=== PATIENT | male | born 1965 | race Caucasian/White ===

== ENCOUNTER → 2017-11-01 | Outpatient (CLI) | payer OTHER ==
[~2017-11-01] MED LIST: ALLEGRA ALLERG180 MG PO; ANTIVERT25 MG PO; ASPIR 8181 MG PO; CARAFATE 1 GM TA1 G1 PO; CLARITIN10 MG PO; FLONASE 0.05%50 MCG NASAL; GLUCOTEN CAPLE1 EACH PO; HYDROCODONE-AP1 EAC6 PO; LIPITOR 20 MG T20 M1 PO; LISINOPRIL-HCT1 EAC2 PO; LISINOPRIL10 MG PO; NORCO 7.5-3251 EACH PO; PRINIVIL; UNICOMPLEX M TA1 TA1 PO; VALIUM5 MG PO; ZYRTEC10 MG PO
--- NOTE | ~2017-11-01 | 2DMMODE ---
[facility] [employer] [place] [address] 2 D/M-MODE ECHOCARDIOGRAM Name: AKBAR DOW Room #: REG [facility]#: [id number] Admission: 11/01/17 Attend Phys: Gerardo Castaneda Discharge: Date of : 63 Date of Service: 11/01/17 [facility] Report #: [id number] THIS REPORT FOR: //name// APPROVED REPORT Study performed: 11/01/2017 09:14:55 EXAM: Comprehensive 2D, Doppler, and color-flow Echocardiogram Patient Location: Out-Patient Status: routine BSA: 2.26 HR: 74 bpm BP: 145/94 mmHg Rhythm: NSR Other Information Study Quality: Good Indications SOB 2D Dimensions RVDd: 32.32 mm IVSd: 11.92 (7-11mm) LVOT Diam: 22.24 (18-24mm) LVDd: 48.16 mm PWd: 10.70 (7-11mm) Ascending Ao: 34.52 (22-36mm) LVDs: 28.65 (25-40mm) Aortic Root: 37.53 mm Volumes Left Atrial Volume (Systole) Single Plane 4CH: 54.94 mL Single Plane 2CH: 44.08 mL LA ESV Index: 24.00 mL/m2 Aortic Valve AoV Peak Jaron.: 1.55 m/s AO Peak Gr.: 9.59 mmHg LVOT Max P.27 mmHg LVOT Max V: 1.03 m/s PEPPER Vmax: 2.59 cm2 Mitral Valve E/A Ratio: 0.9 MV Decel. Time: 213.35 ms MV E Max Jaron.: 0.79 m/s [facility] [address] [place] [address] 2 D/M-MODE ECHOCARDIOGRAM Name: AKBAR DOW Room #: REG [facility]#: [id number] Admission: 11/01/17 Attend Phys: Gerardo Castaneda Discharge: Date of : 63 Date of Service: 11/01/17 1024 Report #: [id number] MV A Jaron.: 0.91 m/s MV PHT: 61.87 ms IVRT: 101.50 ms Pulmonary Valve PV Peak Jaron.: 1.04 m/s PV Peak Gr.: 4.35 mmHg Pulmonary Vein P Vein S: 0.51 m/s P Vein A: 0.35 m/s P Vein D: 0.45 m/s P Vein A Dur.: 129.2 msec P Vein S/D Ratio: 1.13 Tricuspid Valve TR Peak Jaron.: 2.07 m/s RAP Estimate: 5.00 mmHg TR Peak Gr.: 17.12 mmHg PA Pressure: 22.00 mmHg Left Ventricle The left ventricle is normal size. There is normal LV segmental wall motion. Mild concentric left ventricular hypertrophy. The left ventricular systolic function is normal. LVEF is 60-65%. Mild diastolic dysfunction is present (impaired relaxation pattern). Right Ventricle The right ventricle is normal size. The right ventricular systolic function is normal. Atria The left atrium size is normal. The right atrium size is normal. Aortic Valve Aortic valve is mildy calcified. Mild aortic regurgitation. There is no aortic valvular stenosis. Mitral Valve The mitral valve is normal in structure. Trace mitral regurgitation. No evidence of mitral valve stenosis. Tricuspid Valve The tricuspid valve is normal in structure. Trace tricuspid regurgitation. Estimated PAP is 22mmHg. Pulmonic Valve The pulmonary valve is normal in structure. There is no pulmonic [facility] [address] [place] [address] 2 D/M-MODE ECHOCARDIOGRAM Name: AKBAR DOW Room #: REG [facility]#: [id number] Admission: 11/01/17 Attend Phys: Gerardo Castaneda Discharge: Date of : 63 Date of Service: 11/01/17 1024 Report #: [id number] valvular regurgitation. Great Vessels Aortic root is borderline dilated. The ascending aorta is normal in size. IVC is normal in size and collapses >50% with inspiration. Pericardium There is no pericardial effusion. <Conclusion> The left ventricle is normal size. LVEF is 60-65%. Aortic valve is mildy calcified. Mild aortic regurgitation. The mitral valve is normal in structure. Trace mitral regurgitation. The tricuspid valve is normal in structure. Trace tricuspid regurgitation. Estimated PAP is 22mmHg. The pulmonary valve is normal in structure. There is no pericardial effusion. <ELECTRONICALLY SIGNED> By: Gerardo Barron MD 11/01/17 1024 1024 1024 Gerardo Barron MD /INF
== END ==
LOC: CV 06:57
DX: I35.1 Nonrheumatic aortic (valve) insufficiency (principal); I10 Essential (primary) hypertension; E78.5 Hyperlipidemia, unspecified; I35.8 Other nonrheumatic aortic valve disorders; E66.9 Obesity, unspecified; Z87.891 Personal history of nicotine dependence